=== PATIENT | male | born 1950 | race Caucasian/White ===

== ENCOUNTER 2017-01-01 02:11 | Emergency (ER) | payer OTHER ==
[~2017-01-01] VITALS: Ht 152.4 cm; Wt 111.1 kg
[~2017-01-01 02:11] MED LIST: TRAMADOL50 MG PO
--- NOTE | 2017-01-01 02:42 | ED GI/GU/ABDOMINAL COMPLAINT ---
History of Present Illness General Chief Complaint: Abdominal Pain/Flank Pain Stated Complaint: ABD PAIN Source: patient, old records Exam Limitations: no limitations Vital Signs & Intake/Output Vital Signs & Intake/Output Vital Signs Date Time Temp Pulse Resp B/P Pulse O2 O2 Flow FiO2 Ox Delivery Rate 01/01 0233 97.2 74 20 180/79 99 Allergies Coded Allergies: NO KNOWN ALLERGIES (01/01/17) Reconcile Medications TRAMADOL HCL (Tramadol) 50 MG TAB 1 TAB PO Q6P PRN apin Triage Note: PT C/O RUQ PAIN FOR PAST 4 HOURS. PT DENIES N/V/D, FEVERS AND CHILLS. Triage Nurses Notes Reviewed? yes HPI: Patient complaining of right upper quadrant pain for the past 3 hours. Patient cannot describe the pain other than calling of the pain. There is no radiation. There are no aggravating or mitigating factors. Pain had gradual onset. Currently he rates the pain a 6 out of 10. There is no nausea or vomiting. There is no constipation or diarrhea. There is no dysuria. Patient denies any chest pain. There is no shortness of breath. There is no diaphoresis. Past History Travel History Traveled to [place] past 21 day No Medical History Any Pertinent Medical History? see below for history Neurological: NONE EENT: NONE Cardiovascular: hypertension Respiratory: NONE Gastrointestinal: NONE Hepatic: NONE Renal: NONE Musculoskeletal: NONE Psychiatric: NONE Endocrine: NONE Blood Disorders: NONE Cancer(s): NONE CHIROPRACTIC ASSISTANT/Reproductive: NONE Surgical History Surgical History: non-contributory Psychosocial History What is your primary language [facility] [place] Tobacco Use: Never used ETOH Use: denies use Illicit Drug Use: denies illicit drug use Family History Hx Contributory? No Review of Systems Review of Systems Constitutional: Reports: no symptoms. EENTM: Reports: no symptoms. Respiratory: Reports: no symptoms. Cardiovascular: Reports: no symptoms. GI: Reports: see HPI, abdominal pain. Genitourinary: Reports: no symptoms. Musculoskeletal: Reports: no symptoms. Skin: Reports: no symptoms. Neurological/Psychological: Reports: no symptoms. Hematologic/Endocrine: Reports: no symptoms. Immunologic/Allergic: Reports: no symptoms. All Other Systems: Reviewed and Negative Physical Exam Physical Exam General Appearance: well developed/nourished, alert, awake, mild distress Head: atraumatic, normal appearance Eyes: Bilateral: PERRL, EOMI, other (ANICTERIC). Ears, Nose, Throat, Mouth: hearing grossly normal, moist mucous membrane Neck: normal inspection, supple, full range of motion Respiratory: normal breath sounds, chest non-tender, no respiratory distress, lungs clear Cardiovascular: regular rate/rhythm, normal peripheral pulses Gastrointestinal: normal bowel sounds, soft, no organomegaly, tenderness (RUQ) Back: normal inspection, normal range of motion Extremities: normal range of motion Neurologic/Psych: no motor/sensory deficits, awake, alert, oriented x 3, normal gait, normal mood/affect Skin: intact, normal color, warm/dry Core Measures ACS in differential dx? Yes ASA ordered for poss ACS? No-ACS ruled out Severe Sepsis Present: No Septic Shock Present: No Progress Differential Diagnosis: AAA, AMI, biliary colic, colon cancer, cholecystitis, diverticulitis, gastritis, ischemic bowel, inflamm bowel dis, pancreatitis, peptic ulcer, SBO Plan of Care: Orders Procedure Date/time Status URINALYSIS 01/01 239 Active TROPONIN LEVEL 01/01 239 Complete LIPASE 01/01 239 Complete COMPREHENSIVE METABOLIC PANEL 01/01 239 Complete CBC WITHOUT DIFFERENTIAL 01/01 239 Complete AMYLASE 01/01 239 Complete EKG 01/01 239 Active Laboratory Tests 01/01/17 0304: Anion Gap 10, Estimated GFR > 60, BUN/Creatinine Ratio 26.4 H, Glucose 104 H, Calcium 8.9, Total Bilirubin 0.6, AST 33, ALT 50, Alkaline Phosphatase 71, Troponin I 0.02, Total Protein 7.3, Albumin 4.0, Globulin 3.3, Albumin/Globulin Ratio 1.2, Amylase 39, Lipase 79, CBC w Diff NO MAN DIFF REQ, RBC 4.34 L, MCV 87.3, MCH 29.9, RDW 13.4, MPV 6.8 L, Gran % 61.1, Lymphocytes % 26.4, Monocytes % 10.0 H, Eosinophils % 2.1, Basophils % 0.4, Absolute Granulocytes 5.1, Absolute Lymphocytes 2.2, Absolute Monocytes 0.8 H, Absolute Eosinophils 0.2, Absolute Basophils 0, PUBS MCHC 34.2 Diagnostic Imaging: Viewed by Me: CT Scan. Discussed w/RAD: CT Scan. Radiology Impression: PATIENT: DEAN CARRILLO PRESENT AGE: 66 PATIENT ACCOUNT NO: [id number] : 52 LOCATION: [facility] ORDERING PHYSICIAN: MARÍA ELENA KOEHLER MD SERVICE DATE: 01/01/17 EXAM TYPE: CAT - CT ABD & PELVIS W IV CONTRAST EXAMINATION: CT ABDOMEN AND PELVIS WITH CONTRAST CLINICAL INFORMATION: Right upper quadrant pain. COMPARISON: 06/02/2009. TECHNIQUE: Contiguous axial thin section helical images of the abdomen and pelvis were performed following the administration of 93 mL of intravenous Optiray 320. The data set was reformatted in the coronal and sagittal planes and reviewed on an independent workstation. DLP: 1335 mGy-cm. FINDINGS: Within the visualized lung bases, there is mild right greater than left bronchial wall thickening. There are several right lower lobe calcified granulomas. Within the right middle and lower lobes, there is geographic heterogeneous attenuation likely employee relations representative of air trapping. The visualized portions of the heart are unremarkable. The liver is of normal size and diffuse decreased attenuation without focal lesions nor intrahepatic biliary ductal dilation. A normal gallbladder is identified. There is no wall thickening or discernible pericholecystic fluid. The spleen, pancreas, adrenal glands are unremarkable. Both kidneys are of normal size and attenuation without hydronephrosis or nephrolithiasis. There is a 3 cm exophytic cyst emanating from the upper pole of the left kidney. Following the administration of IV contrast, prompt symmetric nephrograms are displayed. There is no abdominal free fluid. There is neither mesenteric nor retroperitoneal lymphadenopathy. There is a fat-containing umbilical hernia. Normal unopacified loops of small and large bowel are identified. A normal appendix is identified. There is no pelvic free fluid. The urinary bladder is unremarkable. There is neither pelvic nor inguinal lymphadenopathy. There are bilateral fat-containing inguinal hernias. Bone windows: Neither sclerotic nor lytic bone lesions are identified. There is mild anterior displacement of L4 in relation to L5 likely employee relations representative of pseudolisthesis secondary to degenerative change within the lower lumbar spine facet joints. There is mild disc height loss at L5/S1. IMPRESSION: No evidence for acute abdominal or pelvic inflammatory or infectious processes. Hepatic steatosis. Right greater than left bilateral lower lobe bronchial wall thickening with likely right middle and lower lobe air trapping. DICTATED BY: GALINA HSIEH MD DATE/TIME DICTATED:01/01/17427 TREATMENT COORDINATOR:INDIA DATE/TIME TRANSCRIBED:01/01/17427 CONFIDENTIAL, DO NOT COPY WITHOUT APPROPRIATE AUTHORIZATION. <Electronically signed in Other Vendor System> SIGNED BY: GALINA HSIEH MD 01/01/17 0449 Initial ED EKG: NSR, RBBB, nonspecific ST T wave chg Comments: Patient is feeling better and does not want to stay to have an ultrasound performed this morning. Patient states that if the pain comes back he will follow up with his primary care physician. Patient advised that if the pain comes back or he develops any nausea or vomiting it is recommended that he come back to the emergency room for reevaluation. Departure Departure Disposition: HOME OR SELF CARE Condition: Stable Clinical Impression Primary Impression: Upper abdominal pain, unspecified Referrals: MUKUL GUEVARA,LEIA NEWELL (PCP/Family) Additional Instructions: Return if the symptoms return or for any concerns. Departure Forms: Customer Survey General Discharge Information
[2017-01-01 03:11] LABS: ABSOLUTE BASOPHIL COUNT 0 /CUMM (0.0-0.2); ABSOLUTE EOSINOPHIL COUNT 0.2 /CUMM (0.0-0.7); ABSOLUTE GRANULOCYTE CT 5.1 /CUMM (1.4-6.5); ABSOLUTE LYMPH COUNT 2.2 /CUMM (1.2-3.4); ABSOLUTE MONOCYTE COUNT 0.8 /CUMM (0.10-0.60); BASOPHIL % 0.4 % (0.0-2.0); EOSINOPHIL % 2.1 % (0-5); GRANULOCYTE % 61.1 % (42.2-75.2); HEMATOCRIT 37.9 % (42-52); MEAN CORPUSCULAR HGB 29.9 PG (27.0-31.0); MEAN CORPUSCULAR HGB CONC 34.2 G/DL (33.0-37.0); MEAN CORPUSCULAR VOLUME 87.3 FL (80.0-94.0); MEAN PLATELET VOLUME 6.8 FL (7.4-10.4); PLATELET COUNT 348 /CUMM (130-400); RBC DISTRIBUTION WIDTH 13.4 % (11.5-14.5); RED BLOOD CELL CT 4.34 /CUMM (4.70-6.10); WHITE BLOOD CELL COUNT 8.3 /CUMM (4.8-10.8)
--- NOTE | 2017-01-01 04:42 | CT SCAN REPORT ---
EXAMINATION: CT ABDOMEN AND PELVIS WITH CONTRAST CLINICAL INFORMATION: Right upper quadrant pain. COMPARISON: 06/02/2009. TECHNIQUE: Contiguous axial thin section helical images of the abdomen and pelvis were performed following the administration of 93 mL of intravenous Optiray 320. The data set was reformatted in the coronal and sagittal planes and reviewed on an independent workstation. DLP: 1335 mGy-cm. FINDINGS: Within the visualized lung bases, there is mild right greater than left bronchial wall thickening. There are several right lower lobe calcified granulomas. Within the right middle and lower lobes, there is geographic heterogeneous attenuation likely outside dealer sales representative of air trapping. The visualized portions of the heart are unremarkable. The liver is of normal size and diffuse decreased attenuation without focal lesions nor intrahepatic biliary ductal dilation. A normal gallbladder is identified. There is no wall thickening or discernible pericholecystic fluid. The spleen, pancreas, adrenal glands are unremarkable. Both kidneys are of normal size and attenuation without hydronephrosis or nephrolithiasis. There is a 3 cm exophytic cyst emanating from the upper pole of the left kidney. Following the administration of IV contrast, prompt symmetric nephrograms are displayed. There is no abdominal free fluid. There is neither mesenteric nor retroperitoneal lymphadenopathy. There is a fat-containing umbilical hernia. Normal unopacified loops of small and large bowel are identified. A normal appendix is identified. There is no pelvic free fluid. The urinary bladder is unremarkable. There is neither pelvic nor inguinal lymphadenopathy. There are bilateral fat-containing inguinal hernias. Bone windows: Neither sclerotic nor lytic bone lesions are identified. There is mild anterior displacement of L4 in relation to L5 likely outside dealer sales representative of pseudolisthesis secondary to degenerative change within the lower lumbar spine facet joints. There is mild disc height loss at L5/S1. IMPRESSION: No evidence for acute abdominal or pelvic inflammatory or infectious processes. Hepatic steatosis. Right greater than left bilateral lower lobe bronchial wall thickening with likely right middle and lower lobe air trapping.
[2017-01-01 05:00] VITALS: BP 176/70
[2017-01-01] MEDS ORDERED: VALSARTAN-HCTZ1 EACH PO (12:37)
[2017-01-01] MEDS ORDERED: NORCO 5-325 TA1 EACH PO (13:24)
== END 2017-01-01 05:36 ==
LOC: ERH 02:11
PROVIDERS: Emergency Medicine
DX: R10.10 Upper abdominal pain, unspecified (principal)
CPT/HCPCS: 74177; 93005; 93010; 96374; J1885

== ENCOUNTER 2017-01-01 11:09 | Emergency (ER) | payer OTHER ==
[~2017-01-01] VITALS: Ht 167.6 cm; Wt 111.1 kg
--- NOTE | 2017-01-01 11:54 | ED GI/GU/ABDOMINAL COMPLAINT ---
History of Present Illness General Chief Complaint: Abdominal Pain/Flank Pain Stated Complaint: ABD PAIN Source: patient Exam Limitations: no limitations Vital Signs & Intake/Output Vital Signs & Intake/Output Vital Signs Date Time Temp Pulse Resp B/P Pulse O2 O2 Flow FiO2 Ox Delivery Rate 01/01 1314 99.0 80 20 153/72 98 Room Air 01/01 1129 168/98 01/01 1128 98.7 84 18 188/113 97 Room Air Allergies Coded Allergies: NO KNOWN ALLERGIES (01/01/17) Reconcile Medications Hydrocodone/Acetaminophen (Crosby 5-325 Tablet) 5 MG-325 MG TABLET 1-2 TAB PO Q4-6 PRN PRN PAIN TRAMADOL HCL (Tramadol) 50 MG TAB 1 TAB PO Q6P PRN apin Valsartan/Hydrochlorothiazide (Valsartan-Hctz 80-12.5 MG Tab) 80 MG-12.5 MG TABLET 1 TAB PO DAILY HEART (Reported) Triage Note: PT STATES THAT HE WAS SEEN IN ER 0200 FOR ABD PAIN , HAD NEGATIVE ABD CT AND BLOOD WORK BUT STATES THAT MID ABD PAIN IS BACK, DENIES N/V/D Triage Nurses Notes Reviewed? yes Onset: Gradual Duration: day(s): (2) Timing: remote history Quality/Severity: sharpness Severity Numbers: 7 Location: right upper quadrant Radiation: no radiation Activities at Onset: none Prior Abdominal Problems: similar symptoms Past Sexual History: Unobtainable at this time No Modifying Factors: none HPI: Patient is a 66-year-old male presenting to the emergency department chief complaint of right upper quadrant thing going on for the past 24-36 hours. Pain is sharp and stabbing and is nonradiating. Nothing seems to make it better or worse. He reports he was seen and evaluated in the emergency department early this morning for the same pain, was treated for his pain, had negative blood work and negative CAT scan. For studies coming back into the emergency department because he was not discharged with any pain medications and the pain came back. Denies any nausea or vomiting. No chest pain or palpitations. No shortness of breath. History of similar symptoms 6 or 7 years ago. He thinks it was his gallbladder at that time. Denies having his gallbladder removed. (ADIA DOBBINS,AZUL) Past History Travel History Traveled to [place] past 21 day No Medical History Any Pertinent Medical History? see below for history Neurological: NONE EENT: NONE Cardiovascular: hypertension Respiratory: NONE Gastrointestinal: NONE Hepatic: NONE Renal: NONE Musculoskeletal: NONE Psychiatric: NONE Endocrine: NONE Blood Disorders: NONE Cancer(s): NONE DEWAXER/Reproductive: NONE Surgical History Surgical History: non-contributory Psychosocial History What is your primary language [place] Islander Tobacco Use: Never used ETOH Use: denies use Illicit Drug Use: denies illicit drug use Family History Hx Contributory? No (AZUL MARIA) Review of Systems Review of Systems Constitutional: Reports: no symptoms. Comments Review of systems: See HPI, All other systems negative. Constitutional, no chills fever or weight loss HEENT: No visual changes no sore throat no congestion Cardiovascular: No chest pain ,palpitation , orthopnea or ankle swelling Skin, no jaundice no rashes Respiratory: No dyspnea cough sputum or hemoptysis GI: No nausea no vomiting : No dysuria No hematuria Muscle skeletal: no back pain, no neck pain, Neurologic: No numbness no confusion Psych: No stress anxiety or depression,. Heme/endocrine: No bruising no bleeding no polyuria or polydipsia Immunology: No splenectomy or history of AIDS (AZUL MARIA) Physical Exam Physical Exam General Appearance: well developed/nourished, no apparent distress, alert, awake , comfortable Gastrointestinal: normal bowel sounds, soft, tenderness, hernia Comments: Well-developed well-nourished person in no acute distress HEENT: Pupils equally round and reactive to light and accommodation. Nose is atraumatic. Neck: Normal inspection Back: Nontender, no CVA tenderness. Full range of motion Cardiovascular: Regular rate and rhythms no murmurs rubs or gallops, normal JVP Respiratory: Chest nontender. No respiratory distress.breath sounds clear to auscultation bilaterally Abdomen: Soft, obese, tender to palpation in the right upper quadrant, positive Chavez sign, nondistended, no appreciable organomegaly. Normal bowel sounds. No ascites. Positive umbilical hernia that is reducible. Extremity: No edema Neuro: Alert oriented x3 Skin: No appreciable rash on exposed skin, skin is warm and dry. Psych: Mood and affect is normal, memory and judgment is normal. Core Measures ACS in differential dx? No Severe Sepsis Present: No Septic Shock Present: No (AZUL MARIA) Progress Differential Diagnosis: cholecystitis, choledocholithiasis, biliary colic Plan of Care: Orders Procedure Date/time Status US-LIMITED ABDOMEN 01/01 1153 Active Diagnostic Imaging: Viewed by Me: Ultrasound. Discussed w/RAD: Ultrasound. Radiology Impression: PATIENT: DEAN CARRILLO PRESENT AGE: 66 PATIENT ACCOUNT NO: [id number] : 52 LOCATION: [facility] ORDERING PHYSICIAN: AZUL DOBBINS SERVICE DATE: 01/01/17 EXAM TYPE: US - US-LIMITED ABDOMEN EXAMINATION: US ABDOMEN LIMITED CLINICAL INFORMATION: Right upper quadrant pain.. COMPARISON: CT of the abdomen and pelvis from earlier the same day. TECHNIQUE: Real-time imaging of the right upper quadrant abdominal viscera. FINDINGS: PANCREAS: Normal. LIVER: Evaluation of the liver is limited due to body habitus. The liver appears echogenic without focal lesion. GALLBLADDER: Normal. The gallbladder is physiologically distended without evidence of stones, sludge, polyps, wall thickening or pericholecystic fluid. COMMON BILE DUCT: Normal in caliber measuring 0.2 cm in diameter. RIGHT KIDNEY: Normal. No hydronephrosis. No renal calculi or focal parenchymal lesions. The kidney measures 11.4 cm in maximum dimension. FREE FLUID: None. IMPRESSION: Somewhat limited study demonstrating hepatic steatosis. The gallbladder appears unremarkable without evidence of cholecystitis. Initial ED EKG: none Comments: On arrival patient in no acute distress, positive right upper quadrant pain on exam. Patient given IV fluids and morphine. Patient had blood work done approximately 4 or 5 hours ago. No need to repeat blood work at this time. We will obtained limited ultrasound as patient had CAT scan was negative last night. 01/01/2017 1:26:50 PM and reevaluation patient having improved abdominal pain. No fever. Patient had unremarkable blood work over the past couple hours. He has an appointment to follow up with his primary care physician on Friday. He'll be sent home with pain medication. Patient may need HIDA scan. Patient nontoxic. Discussed with Dr. Sparks and he agrees the plan. (ADIA DOBBINS,AZUL) Departure Departure Time of Disposition: 1313 Disposition: HOME OR SELF CARE Condition: Stable Clinical Impression Primary Impression: Abdominal pain Qualifiers: Abdominal location: right upper quadrant Qualified Code: R10.11 - Right upper quadrant pain Referrals: LEIA GILMAN MD (PCP/Family) KATT TAMAYO MD Additional Instructions: Follow-up with gastroenterology call to make appointment. Increase fluids. Take pain medication as prescribed. He may need a HIDA scan if symptoms persist to further evaluate your gallbladder. Attached is a copy of your ultrasound results. PATIENT: DEAN CARRILLO PRESENT AGE: 66 PATIENT ACCOUNT NO: [id number] : 52 LOCATION: [facility] ORDERING PHYSICIAN: AZUL DOBBINS SERVICE DATE: 01/01/17 EXAM TYPE: US - US-LIMITED ABDOMEN EXAMINATION: US ABDOMEN LIMITED CLINICAL INFORMATION: Right upper quadrant pain.. COMPARISON: CT of the abdomen and pelvis from earlier the same day. TECHNIQUE: Real-time imaging of the right upper quadrant abdominal viscera. FINDINGS: PANCREAS: Normal. LIVER: Evaluation of the liver is limited due to body habitus. The liver appears echogenic without focal lesion. GALLBLADDER: Normal. The gallbladder is physiologically distended without evidence of stones, sludge, polyps, wall thickening or pericholecystic fluid. COMMON BILE DUCT: Normal in caliber measuring 0.2 cm in diameter. RIGHT KIDNEY: Normal. No hydronephrosis. No renal calculi or focal parenchymal lesions. The kidney measures 11.4 cm in maximum dimension. FREE FLUID: None. IMPRESSION: Somewhat limited study demonstrating hepatic steatosis. The gallbladder appears unremarkable without evidence of cholecystitis. Departure Forms: Customer Survey D/C INS-APPENDICITIS EXCLUSION General Discharge Information Prescriptions: Current Visit Scripts Hydrocodone/Acetaminophen (Crosby 5-325 Tablet) 1-2 TAB PO Q4-6 PRN PRN PAIN #10 TAB (AZUL MARIA) PA/BRICK DROPPER Co-Sign Statement Statement: ED Attending supervision documentation- [] I saw and evaluated the patient. I have also reviewed all the pertinent lab results and diagnostic results. I agree with the findings and the plan of care as documented in the PA's/BRICK DROPPER's documentation. [X] I have reviewed the ED Record and agree with the PA's/BRICK DROPPER's documentation. [] Additions or exceptions (if any) to the PAs/BRICK DROPPER's note and plan are summarized below: [] (VENITA SPARKS DO
[2017-01-01] MEDS ORDERED: VALSARTAN-HCTZ1 EACH PO (12:37)
--- NOTE | 2017-01-01 13:09 | ULTRASOUND REPORT ---
EXAMINATION: US ABDOMEN LIMITED CLINICAL INFORMATION: Right upper quadrant pain.. COMPARISON: CT of the abdomen and pelvis from earlier the same day. TECHNIQUE: Real-time imaging of the right upper quadrant abdominal viscera. FINDINGS: PANCREAS: Normal. LIVER: Evaluation of the liver is limited due to body habitus. The liver appears echogenic without focal lesion. GALLBLADDER: Normal. The gallbladder is physiologically distended without evidence of stones, sludge, polyps, wall thickening or pericholecystic fluid. COMMON BILE DUCT: Normal in caliber measuring 0.2 cm in diameter. RIGHT KIDNEY: Normal. No hydronephrosis. No renal calculi or focal parenchymal lesions. The kidney measures 11.4 cm in maximum dimension. FREE FLUID: None. IMPRESSION: Somewhat limited study demonstrating hepatic steatosis. The gallbladder appears unremarkable without evidence of cholecystitis.
[2017-01-01 13:14] VITALS: BP 153/72
[2017-01-01] MEDS ORDERED: NORCO 5-325 TA1 EACH PO (13:24)
== END 2017-01-01 13:37 ==
LOC: ERH 11:09
DX: R10.11 Right upper quadrant pain (principal)
CPT/HCPCS: 96361; 96374

== ENCOUNTER 2017-02-26 04:53 | Emergency (ER) | payer OTHER ==
[~2017-02-26] VITALS: Ht 167.6 cm; Wt 117.9 kg
[~2017-02-26 04:53] MED LIST changes: +NORCO 5-325 TA1 EACH PO; +VALSARTAN-HCTZ1 EACH PO
[2017-02-26 05:18] VITALS: BP 159/83
[2017-02-26] MEDS ORDERED: CLONAZEPAM0.5 M2 PO (05:20)
[2017-02-26] MEDS ORDERED: AMLODIPINE BESYL5 M1 PO (05:21)
--- NOTE | 2017-02-26 05:37 | ED INFLUENZA/URI COMPLAINT ---
History of Present Illness General Chief Complaint: General Adult Stated Complaint: SORE THROAT/BAD COUGH/WEAKNESS Source: patient Exam Limitations: no limitations Vital Signs & Intake/Output Vital Signs & Intake/Output Vital Signs Date Time Temp Pulse Resp B/P Pulse O2 O2 Flow FiO2 Ox Delivery Rate 02/26 0606 97 Room Air 02/26 0518 97.5 77 18 159/83 96 Room Air Allergies Coded Allergies: NO KNOWN ALLERGIES (01/01/17) Reconcile Medications Amlodipine Besylate 5 MG TABLET 5 MG PO DAILY HTN (Reported) Clonazepam 0.5 MG TABLET 0.5 MG PO NIGHTLY SLEEP (Reported) Hydrocodone/Acetaminophen ([place] 5-325 Tablet) 5 MG-325 MG TABLET 1-2 TAB PO Q4-6 PRN PRN PAIN TRAMADOL HCL (Tramadol) 50 MG TAB 1 TAB PO Q6P PRN apin Valsartan/Hydrochlorothiazide (Valsartan-Hctz 80-12.5 MG Tab) 80 MG-12.5 MG TABLET 1 TAB PO DAILY HEART (Reported) Triage Note: PT TO ED C/O SORE THROAT, ARM AND SHOULDER PAIN, "FEELING TIRED", AND DRY MOUTH. PT ALSO COMPLAINS OF NAUSEA. PT HAS BEEN FEELING LIKE THIS X2 WEEKS. PT STATES HE CAME IN BECAUSE HE FELT SOB AND COULD NOT SLEEP. Triage Nurses Notes Reviewed? yes Onset: Gradual Duration: week(s): (1) Timing: recent history Severity: mild, moderate Modifying Factors: Worsens With: other (swallowing). Associated Symptoms: cough, WEAKNESS HPI: 66-year-old male with history of hypertension presents to the ER with chief complaint of dry cough, shortness of breath, body aches and weakness for the past one week. He is status post a course of amoxicillin that ended on Friday. He states his family physician was treating him for a viral throat infection. He reports persistent sore throat and some painful swallowing. Past History Travel History Traveled to [place] past 21 day No Medical History Any Pertinent Medical History? see below for history Neurological: NONE EENT: NONE Cardiovascular: hypertension Respiratory: NONE Gastrointestinal: NONE Hepatic: NONE Renal: NONE Musculoskeletal: NONE Psychiatric: NONE Endocrine: NONE Blood Disorders: NONE Cancer(s): NONE CANCER REGISTRY COORDINATOR/Reproductive: NONE Surgical History Surgical History: non-contributory Psychosocial History What is your primary language Y[place] Tobacco Use: Current Not Daily ETOH Use: denies use Illicit Drug Use: denies illicit drug use Family History Hx Contributory? No Review of Systems Review of Systems Constitutional: Reports: weakness. Denies: chills, fever. EENTM: Reports: throat pain. Respiratory: Reports: cough. Denies: short of breath, sputum production. Cardiovascular: Denies: chest pain, palpitations. GI: Denies: abdominal pain, diarrhea, nausea, vomiting. Genitourinary: Denies: discharge, dysuria. Musculoskeletal: Reports: no symptoms. Skin: Reports: no symptoms. Neurological/Psychological: Reports: anxiety. Hematologic/Endocrine: Denies: bruising, bleeding, polyuria, polydipsia. Immunologic/Allergic: Denies: splenectomy. All Other Systems: Reviewed and Negative Physical Exam Physical Exam General Appearance: well developed/nourished, alert, awake Head: atraumatic, normal appearance Eyes: Bilateral: normal appearance, PERRL, EOMI. Ears, Nose, Throat: normal ENT inspection, moist mucous membrane, hearing grossly normal Neck: normal inspection, supple, full range of motion Respiratory: normal breath sounds, chest non-tender, no respiratory distress Cardiovascular: regular rate/rhythm Peripheral Pulses: 2+ radial (R), 2+ radial (L) Gastrointestinal: normal bowel sounds, soft, non-tender Extremities: normal inspection, normal range of motion, no edema Neurologic/Psych: no motor/sensory deficits, awake, alert, oriented x 3, normal gait Skin: intact, normal color, warm/dry Core Measures Severe Sepsis Present: No Septic Shock Present: No Progress Differential Diagnosis: influenza, pneumonia, pharyngitis, ANEMIA, DEHYDRATION, DEAN Plan of Care: Orders Procedure Date/time Status RAPID VIRAL INFLUENZA A 02/26 543 Complete THROAT CULTURE W/QUICK STREP 02/26 543 Active TROPONIN LEVEL 02/27 540 Complete COMPREHENSIVE METABOLIC PANEL 02/26 05 Complete CBC WITHOUT DIFFERENTIAL 02/27 532 Complete EKG 02/27 532 Active Laboratory Tests 02/26/17 0543: Troponin I Cancelled 02/26/17 0540: Anion Gap 12, Estimated GFR > 60, BUN/Creatinine Ratio 27.0 H, Glucose 125 H, Calcium 9.4, Total Bilirubin 0.4, AST 86 H, ALT 109 H, Alkaline Phosphatase 74 , Troponin I < 0.01, Total Protein 7.5, Albumin 4.0, Globulin 3.5, Albumin/ Globulin Ratio 1.1, CBC w Diff NO MAN DIFF REQ, RBC 4.49 L, MCV 87.3, MCH 29.3, RDW 13.8, MPV 6.7 L, Gran % 67.7, Lymphocytes % 22.9, Monocytes % 6.9, Eosinophils % 2.0, Basophils % 0.5, Absolute Granulocytes 5.2, Absolute Lymphocytes 1.8, Absolute Monocytes 0.5, Absolute Eosinophils 0.2, Absolute Basophils 0, PUBS MCHC 33.5 Microbiology 02/26 602 NASOPHARYN: Influenza Virus A & B Rapid Smear - COMP Diagnostic Imaging: Viewed by Me: Radiology Read. Discussed w/RAD: Radiology Read. CXR Impression: PATIENT: DEAN CARRILLO PRESENT AGE: 66 PATIENT ACCOUNT NO: [id number] : 52 LOCATION: [facility] ORDERING PHYSICIAN: BETHANY NUNO MD SERVICE DATE: 02/26/17 EXAM TYPE: RAD - XRY-CHEST XRAY , PA AND LATERAL EXAMINATION: XR CHEST CLINICAL INFORMATION: Cough. Shortness of breath. Weakness. Evaluate for pneumonia. COMPARISON: Chest radiograph 2008. TECHNIQUE: 2 views of the chest were obtained. FINDINGS: Lung volumes are low. A few ill-defined reticular markings are visualized within the lung bases that most likely represent a manifestation of subsegmental atelectasis. There is no overt consolidative disease, pleural effusion, or pneumothorax. The cardiac silhouette and upper mediastinal contours are stable. No acute osseous finding. IMPRESSION: Bibasilar subsegmental atelectasis. No overt consolidative disease or effusion. DICTATED BY: CHEN FLAHERTY MD DATE/TIME DICTATED:02/26/17627 SKI PATROL DIRECTOR:INDIA DATE/TIME TRANSCRIBED:02/26/17627 CONFIDENTIAL, DO NOT COPY WITHOUT APPROPRIATE AUTHORIZATION. <Electronically signed in Other Vendor System> SIGNED BY: CHEN FLAHERTY MD 02/26/17632 Initial ED EKG: RBBB Prior EKG: unchanged Departure Departure Time of Disposition: 638 Disposition: HOME OR SELF CARE Condition: Stable Clinical Impression Primary Impression: Pharyngitis Secondary Impressions: Dehydration, Transaminitis Referrals: LEIA GILMAN MD (PCP/Family) Additional Instructions: Take ibuprofen as needed for sore throat. Continue cough medication. Drink plenty of warm liquids. Follow-up with your doctor in the office and have your liver functions rechecked. Return to the ER for any changing or worsening symptoms. Departure Forms: Customer Survey General Discharge Information
[2017-02-26 05:51] LABS: ABSOLUTE BASOPHIL COUNT 0 /CUMM (0.0-0.2); ABSOLUTE EOSINOPHIL COUNT 0.2 /CUMM (0.0-0.7); ABSOLUTE GRANULOCYTE CT 5.2 /CUMM (1.4-6.5); ABSOLUTE LYMPH COUNT 1.8 /CUMM (1.2-3.4); ABSOLUTE MONOCYTE COUNT 0.5 /CUMM (0.10-0.60); BASOPHIL % 0.5 % (0.0-2.0); GRANULOCYTE % 67.7 % (42.2-75.2); HEMATOCRIT 39.2 % (42-52); MEAN CORPUSCULAR HGB 29.3 PG (27.0-31.0); MEAN CORPUSCULAR HGB CONC 33.5 G/DL (33.0-37.0); MEAN CORPUSCULAR VOLUME 87.3 FL (80.0-94.0); MEAN PLATELET VOLUME 6.7 FL (7.4-10.4); PLATELET COUNT 389 /CUMM (130-400); RBC DISTRIBUTION WIDTH 13.8 % (11.5-14.5); RED BLOOD CELL CT 4.49 /CUMM (4.70-6.10); WHITE BLOOD CELL COUNT 7.7 /CUMM (4.8-10.8)
--- NOTE | 2017-02-26 06:33 | RADIOLOGY REPORT ---
EXAMINATION: XR CHEST CLINICAL INFORMATION: Cough. Shortness of breath. Weakness. Evaluate for pneumonia. COMPARISON: Chest radiograph 05/03/2009. TECHNIQUE: 2 views of the chest were obtained. FINDINGS: Lung volumes are low. A few ill-defined reticular markings are visualized within the lung bases that most likely represent a manifestation of subsegmental atelectasis. There is no overt consolidative disease, pleural effusion, or pneumothorax. The cardiac silhouette and upper mediastinal contours are stable. No acute osseous finding. IMPRESSION: Bibasilar subsegmental atelectasis. No overt consolidative disease or effusion.
== END 2017-02-26 06:49 ==
LOC: ERH 04:53
PROVIDERS: Emergency Medicine
DX: E86.0 Dehydration (principal); R74.0 Nonspecific elevation of levels of transaminase and lactic acid dehydrogenase [LDH]; J02.9 Acute pharyngitis, unspecified
CPT/HCPCS: 87804; 87804-59; 93005; 93010